=== PATIENT | male | born 2000 | race Caucasian/White ===

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

== ENCOUNTER 2022-08-16 15:32 | Emergency (ER) | payer OTHER, SELFPAY ==
--- NOTE | ~2022-08-16 | XR_ITS ---
EXAM: XR abdomen/kub 1V DATE: 08/16/2022 16:46 HISTORY: RT ANT LOWER RIB PAIN, NKI BUT HEAVY LIFTING . COMPARISON: None available. FINDINGS: Clear lung bases. Normal bowel gas pattern. No organomegaly. No abnormal abdominal calcifi cation. Regional bones and soft tissues normal for age. IMPRESSION: Normal abdominal radiograph findings. Reviewed, dictated and finalized at location K.
--- NOTE | ~2022-08-16 | XR_ITS ---
EXAMINATION: XR ribs RT 2V Exam Date/Time: 08/16/2022 16:40 CDT HISTORY: RT ANT LOWER RIB PAIN, NKI BUT HEAVY LIFTING Comparison: 11/10/2018. RESULT: Lines, tubes, and devices: None. Lungs and pleura: Clear. Cardiothymic silhouette: Normal. Other: No acute osseous or upper abdominal finding. IMPRESSION: No acute cardiopulmonary process. No acute osseous finding in the right ribs. Reviewed, dictated and finalized at location K.
[2022-08-16 15:40] VITALS: BP 98/60; PULSE 70; RESP 17; TEMP 37.1; O2SAT 100
--- NOTE | 2022-08-16 15:54 | ED.GENADULT ---
HPI - General Adult General Chief complaint: Unspecified Stated complaint: Right side extreme pain Time Seen by Provider: 08/16/22 16:21 Mode of arrival: ambulatory Limitations: no limitations History of Present Illness HPI narrative: 22-year-old male presents with concern for anterior rib pain that started slowly today. He reports the pain is exacerbated when he moves, bends. He reports it is exacerbated with coughing and deep breathing. He denies any direct injury or trauma. 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 He denies cough, shortness of breath, upper respiratory infection symptoms. He denies nausea, vomiting, diarrhea. He denies dysuria, frequency, urgency, hematuria. He denies rash. he reports the pain does radiate to the back. MD complaint: Rib pain Related Data Allergies Allergy/AdvReac Type Severity Reaction Status Date / Time No Known Allergies Allergy Verified 08/16/22 15:46 Review of Systems Review of Systems: CONSTITUTIONAL: Denies malaise, chills, sweats, or fever. EYES: Denies visual changes, redness, or discharge. ENT: Denies rhinorrhea, congestion, sinus pain, otalgia or sore throat. CARDIOVASCULAR: Denies chest pain, palpitations, or edema. RESPIRATORY: Denies cough or dyspnea. GASTROINTESTINAL: Denies abdominal pain, nausea, vomiting, diarrhea, bloody, or mucous stools. GENITOURINARY: Denies dysuria or hematuria. SKIN: Denies rash or itching. MUSCULOSKELETAL: Reports right anterior rib pain NEUROLOGIC: Denies numbness, weakness, or headache. All systems reviewed & are unremarkable except as noted in HPI and below PMFSH Past Medical History Medical History (Updated 08/16/22 @ 17:00 by Kathleen Roblero NP) No active medical problems Surgical History Surgical History (Updated 07/30/21 @ 15:20 by Milli Multani NP) History of tonsillectomy Hx of appendectomy Social History Social History (Updated 07/30/21 @ 15:21 by Milli Multani NP) Smoking status: Never smoker Alcohol intake: unknown Substance use type: does not use Living arrangements: with family Gender identity (if verbalized by the patient): Male Comments At time of signature, agree with nursing past medical, surgical, social and family history. There is no relevant family history pertinent to the presenting complaint Exam Narrative: GENERAL: Well-appearing, well-nourished, and in no acute distress. HEAD: Normocephalic, atraumatic. EYES: PERRLA, sclera clear, and EOMI. No nystagmus. ENT: Nares clear. Mucous membranes moist. NECK: Supple. CHEST: No respiratory distress. Clear to auscultation. No bony deformities, no asymmetry. Speaks in full sentences. HEART: Regular rate and rhythm. No murmur heard. Normal peripheral pulses. ABDOMEN: Soft, right upper quadrant tenderness. Nondistended, normal active bowel sounds, no palpable masses. EXTREMITIES: Normal range of motion. No edema. Normal strength and sensation. Right lower rib tenderness, difficult to differentiate the tenderness between the right lower rib and right upper abdomen SKIN: Warm, dry, no visible rash. NEURO: Alert and oriented x3. PSYCH: Normal mood and affect Course Course Emergency Course: Offered transfer to emergency room for further evaluation, patient reports he would rather treat with anti-inflammatories and understands reasons to go to the emergency room if his symptoms worsen. Patient given physician liaison number to find a primary care doctor Patient is aware of diagnosis, understands and agrees to treatment plan. Anticipatory guidance given. Patient agrees to follow-up as directed and is aware of reasons to seek care at the emergency department. Portions of this record may have been created with voice recognition software Level of Care: Express Care Visit Vital Signs Vital signs: Vital Signs Temperature 98.7 F 08/16/22 15:40 Pulse Rate 70 08/16/22 15:40 Respirat
== END 2022-08-16 17:07 | disposition home or self-care (01) ==
PROVIDERS: Emergency Provider Nurse Practitioner
DX: R07.81 Pleurodynia (principal)
CPT/HCPCS: 71100; 74018; 99213; G0463

== ENCOUNTER 2024-01-06 17:35 | Emergency (ER) | payer BC, SELFPAY ==
--- NOTE | ~2024-01-06 | XR_ITS ---
XR chest 2V Ordering provider: TEJA Epps History: 23 years Male with . COUGH/HX OF ASTHMA/FEELS LIKE SOMETHING STUCK IN THROAT . Comparison: August 16, 2022 FINDINGS: MEDIASTINUM: The cardiac silhouette is not enlarged. LUNGS: No infiltrates, effusions or pneumothorax. OTHER: No free air under the diaphragm. IMPRESSION: No acute cardiopulmonary pathology. Reviewed, dictated and finalized at location A.
[2024-01-06 17:40] VITALS: BP 108/83; PULSE 98; RESP 20; TEMP 36.5; O2SAT 100
--- NOTE | 2024-01-06 18:37 | ED.GENADULT ---
HPI - General Adult General Chief complaint: Upper Respiratory Infection Stated complaint: cough/trouble breathing Source: patient Mode of arrival: ambulatory History of Present Illness HPI narrative: Patient presents for evaluation of respiratory symptoms for last 4 days. Symptoms include number active cough shortness of breath. Indicates he has a history of asthma and experiences these symptoms every year. He reports a sore throat and a sensation that there is something stuck in (his) throat . He denies any fever, chills, nausea, vomiting. No recent sick contacts to his knowledge. He does not smoke cigarettes but he does vape. He has been using his mother's albuterol inhaler. Related Data Allergies Allergy/AdvReac Type Severity Reaction Status Date / Time No Known Allergies Allergy Verified 08/16/22 15:46 Review of Systems Review of Systems: CONSTITUTIONAL: Denies fever, chills, or sweats. EYES: Denies visual changes, redness, or discharge. ENT: Reports sore throat and sensation that there is something stuck in (his) throat . Denies rhinorrhea, congestion, or otalgia. CARDIOVASCULAR: Denies chest pain, palpitations, or edema. RESPIRATORY: Reports cough and shortness of breath GASTROINTESTINAL: Denies abdominal pain, nausea, vomiting, or diarrhea. GENITOURINARY: Denies dysuria or hematuria. SKIN: Denies rash or itching. MUSCULOSKELETAL: Denies back pain, joint pain, or myalgia. NEUROLOGIC: Denies headache, numbness, dizziness, or weakness. PSYCHIATRIC: Denies anxiety or depression. [facility] Past Medical History Medical History Asthma Environmental allergies Surgical History Surgical History History of tonsillectomy Hx of appendectomy Family History Family History Mother Family history non-contributory Social History Social History Smoking status: Current every day smoker Tobacco type: e-cigarettes/vaping Alcohol intake: unknown Substance use: current Substance use type: marijuana Living arrangements: with family Gender identity (if verbalized by the patient): Male Spiritual care concerns: No Exam Narrative: GENERAL: Well-appearing, well-nourished, and in no acute distress. HEAD: Normocephalic, atraumatic. EYES: PERRLA and EOMI. ENT: Nares clear, no rhinorrhea or epistaxis. Mucous membranes moist. Oropharynx without tonsillar hypertrophy exudate or other lesions. Bilateral TMs pearly yeager nonbulging NECK: Supple. No adenopathy or masses. No carotid bruits or JVD CHEST: cough present on exam. Clear to auscultation. No respiratory distress. No wheezes rales or rhonchi HEART: Regular rate and rhythm. No murmur heard. Normal peripheral pulses. ABDOMEN: Soft, nontender, nondistended, normal active bowel sounds. EXTREMITIES: Normal range of motion. No edema. SKIN: Warm, dry, no rash. NEURO: No focal deficits. Alert and oriented x3. PSYCH: Normal mood and affect. Course Course Emergency Course: This is a 23-year-old male who presented for evaluation of cough. Chest x-ray is negative. Strep negative. Exam is consistent with viral URI. He has a history of asthma and responds favorably to steroids when he has experienced these symptoms in the past. Will dc with prednisone, albuterol and tessalon. Advised smoking cessation. Follow up with primary provider this week. Go to the ER for worsening symptoms. Pt in agreement with plan of care. Level of Care: Express Care Visit Vital Signs Vital signs: Vital Signs Temperature 36.5 C 01/06/24 17:40 Pulse Rate 98 01/06/24 17:40 Respiratory Rate 20 01/06/24 17:40 Blood Pressure 108/83 01/06/24 17:40 Pulse Oximetry 100 01/06/24 17:40 Oxygen Delivery Room Air 01/06/24 17:40
[2024-01-06 18:55] LABS: EDSTREPNEGPOS1 Negative (Negative)
== END 2024-01-06 19:19 | disposition home or self-care (01) ==
PROVIDERS: Emergency Provider Nurse Practitioner
DX: J06.9 Acute upper respiratory infection, unspecified (principal); J45.909 Unspecified asthma, uncomplicated; F17.290 Nicotine dependence, other tobacco product, uncomplicated
CPT/HCPCS: 71046; 87081; 87880; 99213; G0463

== ENCOUNTER 2024-03-07 19:47 | Emergency (ER) | payer SELFPAY ==
--- NOTE | ~2024-03-07 | CT_ITS ---
EXAMINATION: CT abdomen pelvis w con DATE: 03/07/2024 21:08 INDICATION: Right upper quadrant abdominal pain. TECHNIQUE: Computed tomography (CT) of the abdomen and pelvis was performed with 100 mL Omnipaque 350 intravenous contrast. Automated exposure control and iterative reconstruction technique were employe d. The dose-length product was 248.14 mGy-cm. COMPARISON: None. FINDINGS: The visualized portions of the lung bases demonstrate mild atelectasis. No pleural effusion . The heart size is normal. No pericardial effusion. The liver, spleen, gallbladder, pancreas, adrena l glands, and kidneys are normal. There are no dilated loops of bowel. There are changes of appendect bienvenido. There are no pathologically enlarged lymph nodes. There is no free intraperitoneal fluid. There is thoracolumbar dextroscoliosis. IMPRESSION: 1. No etiology for the patient's symptoms. Reviewed, dictated and finalized at location A. MASTER
--- NOTE | ~2024-03-07 | XR_ITS ---
EXAMINATION: [id number] DATE: 03/07/2024 21:02 INDICATION: Right rib pain. Right upper quadrant abdominal pain. TECHNIQUE: A frontal view of the chest and 2 views on 3 radiographs of the right ribs were obtained. COMPARISON: Chest 2 views 01/06/2024 FINDINGS: There is no pneumonia, pleural effusion, or pneumothorax. The heart size is normal. IMPRESSION: 1. No rib fracture. Reviewed, dictated and finalized at location A. DESIGN AND INSTALLATION TECHNICIAN IMPRESSION: 1. No rib fracture.
[2024-03-07 19:49] VITALS: BP 140/76; PULSE 76; RESP 15; TEMP 36.6; O2SAT 100
--- NOTE | 2024-03-07 20:11 | ECG_ITS ---
Test Date: 2024-03-07 20:42:03 Measurements Intervals [place] Rate: 58 P: 10 WI: 152 QRS: 67 QRSD: 82 T: 63 QT: 390 QTc: 384 Interpretive Statements SINUS BRADYCARDIA No previous ECG available for comparison Electronically Signed On 03-07-2024 21:02:19 [employer] by Benito Chauhan M.D.
[2024-03-07] MEDS: methocarbamoL 750 MG TABLET 1500 MG PO (20:27)
[2024-03-07] MEDS: KETOROLAC 15 MG/ML VIAL (*BKC) IV PUSH (20:27)
[2024-03-07] MEDS: ACETAMINOPHEN 500 MG TABLET 1000 MG PO (20:28)
[2024-03-07] MEDS: SODIUM CHLORIDE 0.9% IV 1,000 ML 999 ML IV CONT (20:28)
[2024-03-07 20:34] LABS: Basophils Absolute Auto 0.1 K/mm3 (0.0-0.1); Basophils Percent Auto 1.3 % (0.2-1.2); Eosinophils Absolute Auto 0.7 K/mm3 (0-0.3); Eosinophils Percent Auto 8.5 % (0-4.4); Hematocrit 48.8 % (42.0-52.0); Hemoglobin 16.9 g/dL (14.0-18.0); Immature Granulocyte Absolute 0.02 K/mm3 (0.00-0.031); Immature Granulocyte Percent A 0.3 % (0-0.5); Lymphocytes Absolute Auto 2.51 K/mm3 (0.9-3.2); Lymphocytes Percent Auto 31.5 % (18.3-44.2); Mean Corpuscular HGB Conc 34.6 g/dl (32-36); Mean Corpuscular Hemoglobin 30.4 pg (26-34); Mean Corpuscular Volume 87.8 fl (80-100); Mean Platelet Volume 11.4 fl (7.4-10.4); Monocytes Percent Auto 11.9 % (2.6-8.5); Neutrophils Absolute Auto 3.7 K/mm3 (1.3-6.7); Neutrophils Percent Auto 46.5 % (45.5-73.1); Platelet Count Result 203 k/mm3 (150-375); Red Blood Count 5.56 M/mm3 (4.6-6.20)
--- NOTE | 2024-03-07 20:51 | ED_ITS ---
HPI - General Adult General Chief complaint: Back Pain/Injury Stated complaint: rib and lower back pain Time Seen by Provider: 03/07/24 19:53 History of Present Illness HPI narrative: This is a 23-year-old male presenting ED with chief complaint of right-sided rib pain and back pain. 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 Is worse movement and deep breaths. He has not taken anything for pain control besides marijuana. No fevers chills productive cough nausea vomiting or diarrhea. Related Data Allergies Allergy/AdvReac Type Severity Reaction Status Date / Time No Known Allergies Allergy Verified 03/07/24 19:54 PMFSH Past Medical History Medical History Environmental allergies Asthma Surgical History Surgical History History of tonsillectomy Hx of appendectomy Family History Family History Mother Family history non-contributory Social History Social History Smoking status: Current every day smoker Tobacco type: e-cigarettes/vaping Alcohol intake: unknown Substance use: current Substance use type: marijuana Living arrangements: with family Gender identity (if verbalized by the patient): Male Spiritual care concerns: No Exam 2 Narrative: APPEARANCE: No apparent distress. Head: atraumatic. EYES: EOMI, NOSE: Atraumatic NECK/BACK: no midline spinal tenderness, tension in the paralumbar muscles RESPIRATORY: No increased rate of breathing clear to auscultation CARDIOVASCULAR: RRR, ABDOMINAL: Voluntary guarding, Tenderness in the right upper quadrant MUSCULOSKELETAl: no significant tenderness over the patient's ribcage NEURO: Alert. Moving 4/4 extremities SKIN:: Warm, dry. Normal color PSYCHIATRIC: Normal affect Course Vital Signs Vital signs: Vital Signs Temperature 97.9 F 03/07/24 19:49 Pulse Rate 76 03/07/24 19:49 Respiratory Rate 15 03/07/24 19:49 Blood Pressure 140/76 03/07/24 19:49 Pulse Oximetry 100 12/20/24 19:49 Oxygen Delivery Room Air 03/07/24 19:49 Temperature 97.9 F 03/07/24 19:49 Pulse Rate 76 03/07/24 19:49 Respiratory Rate 15 03/07/24 19:49 Blood Pressure 140/76 03/07/24 19:49 Pulse Oximetry 100 03/07/24 19:49 Oxygen Delivery Room Air 03/07/24 19:49 Medical Decision Making MDM Narrative Medical decision making narrative: -Course: 23-year-old male presenting with right side abdomen/rib pain. imaging/laboratory studies unremarkable. Patient's pain improved with NSAIDs muscle relaxers. pain is MSK in origin. Patient will be discharged. Given return precautions. 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 Vital Signs Vital Signs: Vital Signs Temperature 97.9 F 03/07/24 19:49 Pulse Rate 76 03/07/24 19:49 Respiratory Rate 15 03/07/24 19:49 Blood Pressure 140/76 03/07/24 19:49 Pulse Oximetry 100 03/07/24 19:49 Oxygen Delivery Room Air 03/07/24 19:49 Temperature 97.9 F 03/07/24 19:49 Pulse Rate 76 03/07/24 19:49 Respiratory Rate 15 03/07/24 19:49 Blood Pressure 140/76 03/07/24 19:49 Pulse Oximetry 100 03/07/24 19:49 Oxygen Delivery Room Air 03/07/24 19:49 Lab Data 03/07/24 20:24 03/07/24 20:24 Labs: Lab Results 03/07/24 Range/Units 20:24 WBC 8.0 (4.5-10.0) K/mm3 RBC 5.56 (4.6-6.20) M/mm3 Hgb 16.9 (14.0-18.0) g/dL Hct 48.8 (42.0-52.0) % MCV 87.8 (80-100) fl MCH 30.4 (26-34) pg MCHC 34.6 (32-36) g/dl RDW 13.0 (11.5-14.5) % Plt Count 203 (150-375) k/mm3 MPV 11.4 H (7.4-10.4) fl Immature Gran % (Auto) 0.3 (0-0.5) % Neut % (Auto) 46.5 (45.5-73.1) % Lymph % (Auto) 31.5 (18.3-44.2) % [place] % (Auto) 11.9 H (2.6-8.5) % Eos % (Auto) 8.5 H (0-4.4) % Baso % (Auto) 1.3 H (0.2-1.2) % Lymph # (Auto) 2.51 (0.9-3.2) K/mm3 [place] # (Auto) 1.0 H (0.1-0.6) K/mm3 Eos # (Auto) 0.7 H (0-0.3) K/mm3 Baso # (Auto) 0.1 (0.0-0.1) K/mm3 Abs Immat Gran (auto) 0.02 (0.00-0.031) K/mm3 Absolute Neuts (auto) 3.7 (1.3-6.7) K/mm3 Absolute Nucleated RBC 0.000 (0.0-0.012) K/mm3 Nucleated RBC % 0.0 (0.0-0.2) % Sodium 139 (137-145) mmol/L Potassium 4.2 (3.4-5.0) mmol/L Chloride 106 (98-107) mmol/L Carbon Dioxide 26 (22-30) mmol/L Anion Gap 7 (4-12) mmol/L BUN 14 (9-20) mg/dL Creatinine 1.00 (0.7-1.3) mg/dL Estim Creat Clear Calc 83 ml/min Estimated GFR > 60 (59 - ) Glucose 90 (65-110) mg/dL Calcium 9.9 (8.4-10.2) mg/dL Total Bilirubin 0.9 (0.2-1.3) mg/dL AST 27 (17-59) U/L ALT 13 (6-50) U/L Alkaline Phosphatase 61 (38-126) U/L Total Protein 8.0 (6.3-8.2) g/dL Albumin 4.8 (3.5-5.1) g/dL Lipase 145 (23-300) U/L Discharge Plan Discharge Clinical Impression: Pain in rib Patient Disposition: Home, Self-Care Condition: Stable Instructions: Antibiotic Form, Rib Contusion (ED) Additional Instructions: He was seen emergency department for rib pain. Please use Motrin Tylenol Robaxin as needed. Please follow-up your primary care physician further management. Return if you develop severe chest pain difficulty breathing or if you develop any new or worsening symptoms. Patient Language: Macedonian Prescriptions: New ibuprofen 800 mg tablet 800 mg PO TID PRN (Reason: pain) 7 Days Qty: 21 0RF acetaminophen 500 mg tablet 1,000 mg PO TID PRN (Reason: angelina) 7 Days Qty: 42 0RF methocarbamol 750 mg tablet 1,500 mg PO TID Qty: 35 0RF No Action prednisone 50 mg tablet 50 mg PO DAILY Qty: 5 0RF benzonatate 200 mg capsule 200 mg PO TID PRN (Reason: cough) Qty: 30 0RF Proair Digihaler 90 mcg/actuation aero powdr breath act w/sensor 2 inh inhalation QID Qty: 1 0RF Rx Instructions: okay to substitute for another albuterol inhaler Follow-up/Referrals: UNKNOWN,DOCTOR [Primary Care Provider] -
[2024-03-07 20:55] LABS: Alanine Aminotransferase 13 U/L (6-50); Albumin Level 4.8 g/dL (3.5-5.1); Alkaline Phosphatase 61 U/L (38-126); Anion Gap 7 mmol/L (4-12); Aspartate Amino Transferase 27 U/L (17-59); Bilirubin,Total 0.9 mg/dL (0.2-1.3); Blood Urea Nitrogen 14 mg/dL (9-20); Calcium 9.9 mg/dL (8.4-10.2); Carbon Dioxide 26 mmol/L (22-30); Chloride 106 mmol/L (98-107); Estimated CRCL calculation 83 ml/min; Estimated Glomerular Filt Rate > 60; Glucose 90 mg/dL (65-110); Lipase 145 U/L (23-300); Potassium 4.2 mmol/L (3.4-5.0); Sodium 139 mmol/L (137-145)
== END 2024-03-07 22:01 | disposition home or self-care (01) ==
PROVIDERS: Emergency Provider Emergency Medicine
DX: R07.81 Pleurodynia (principal); J45.909 Unspecified asthma, uncomplicated; F17.290 Nicotine dependence, other tobacco product, uncomplicated
CPT/HCPCS: 36415; 71101; 74177; 80053; 83690; 85025; 93005; 96361; 96374; 99284; A9270; J1885; J7030; Q9967

== ENCOUNTER 2024-09-09 12:16 | Emergency (ER) | payer SELFPAY ==
--- NOTE | 2024-09-09 12:19 | ED.SKABFB ---
HPI - Skin/Abscess/Foreign Bdy General Chief complaint: Skin/Abscess/Foreign Body Stated complaint: rash on body Time Seen by Provider: 09/09/24 12:18 Source: patient Mode of arrival: ambulatory Limitations: no limitations History of Present Illness HPI narrative: Patient is a 24 year old male who presents to the clinic with complaints of rash x 1 day. He states that he has a history of asthma and is allergic to everything outside. He currently cuts trees for work. He is unaware of what he may have came in contact with yesterday, but states the rash is itchy. He has been using calamine lotion. He has not taken anything [id number]. Denies any shortness of breath, nausea, vomiting, fevers, or diarrhea. Related Data Allergies Allergy/AdvReac Type Severity Reaction Status Date / Time No Known Allergies Allergy Verified 03/07/24 19:54 Review of Systems Review of Systems: CONSTITUTIONAL: Denies body aches, fever, chills, or sweats. EYES: Denies visual changes, redness, or discharge. ENT: Denies rhinorrhea, congestion CARDIOVASCULAR: Denies chest pain, palpitations, or edema. RESPIRATORY: Denies cough or dyspnea. GASTROINTESTINAL: Denies abdominal pain, nausea, vomiting, or diarrhea. SKIN: Reports a rash to trunk, back, face, and bilateral arms. MUSCULOSKELETAL: Denies back pain, joint pain, or myalgia. NEUROLOGIC: Denies headache, numbness, tingling, or weakness. All systems reviewed & are unremarkable except as noted in HPI and below PMFSH Past Medical History Medical History Environmental allergies Asthma Surgical History Surgical History History of tonsillectomy Hx of appendectomy Family History Family History Mother Family history non-contributory Social History Social History Smoking status: Current every day smoker Tobacco type: e-cigarettes/vaping Alcohol intake: unknown Substance use: current Substance use type: marijuana Living arrangements: with family Gender identity (if verbalized by the patient): Male Spiritual care concerns: No Comments At time of signature, I have reviewed and agree with nursing past medical, surgical, social and family history unless otherwise noted. Please see nursing chart for further information. There is no relevant family history pertinent to the presenting complaint. Exam Narrative: GENERAL: Well-appearing HEAD: Normocephalic, atraumatic. EYES: ?conjunctivae clear, and EOMI. ENT: Mucous membranes moist. Oropharynx without edema, erythema or lesions. NECK: Supple. No lymphadenopathy CHEST: Clear to auscultation. HEART: Regular rate and rhythm. SKIN: Warm, dry. ?Raised, erythemic papules and itchy rash noted to trunk, bilateral extremities, and face. NEURO: ?Alert and oriented x3.? Course Course Level of Care: Express Care Visit Vital Signs Vital signs: Vital Signs Temperature 98 F 09/09/24 12:20 Pulse Rate 62 09/09/24 12:20 Respiratory Rate 20 09/09/24 12:20 Blood Pressure 121/75 09/09/24 12:20 Pulse Oximetry 99 09/09/24 12:20 Oxygen Delivery Room Air 09/09/24 12:20 Temperature 98 F 09/09/24 12:20 Pulse Rate 62 09/09/24 12:20 Respiratory Rate 20 09/09/24 12:20 Blood Pressure 121/75 09/09/24 12:20 Pulse Oximetry 99 09/09/24 12:20 Oxygen Delivery Room Air 09/09/24 12:20 Reviewed MDM - Skin/Abscess/Foreign Bdy MDM Narrative Medical decision making narrative: Discussed physical exam findings. Prednisone and triamcinolone prescriptions given.Advised supportive measures and signs/symptoms to go to the ER. Pt is appropriate for outpatient treatment and follow up. Differential Diagnosis Differential diagnosis: Likely contact dermatitis and other ( poison miguelina) Critical Care Time Critical Care Time Critical Care Time: No Discharge Plan Discharge Clinical Impression: Poison miguelina Patient Disposition: Home Condition: Stable Instructions: Antibiotic Form, Poison Miguelina (ED) Additional Instructions: Take steroid as prescribed. Use triamcinolone as prescribed. Recommend Zyrtec (or Claritin/Tegan) Prevention is always better than treatment. Learn to identify poison miguelina, oak, and sumac and avoid it. Wear long sleeves, long pants, shoes, and socks. If you touched the plant, try to keep your hands away from your eyes, mouth, and face. Wash the skin thoroughly with soap and cool water as soon as possible. Scrub under the fingernails with a brush to prevent spreading of the resin to other parts of the body by touching or scratching. Remember to wash any clothing with soap and hot water as the resin can persist for many months and cause further dermatitis. You should NOT use antihistamine creams or lotions, anesthetic creams containing benzocaine, or antibiotic creams containing neomycin or bacitracin to the skin. These creams or ointments could make the rash worse. For some people, adding oatmeal to a bath, applying cool wet compresses, and applying calamine lotion may help to relieve itching. Once the blisters begin weeping fluid, astringents containing aluminum acetate (Burow's solution) and [place]omeboro may help to relieve the rash. IF symptoms get worse to follow up with your primary care provider or seek ER visit if you developing difficulty breathing, weakness, dizziness. Patient Language: Lithuanian Prescriptions: New prednisone 10 mg tablet See Rx Instructions .Route .COMPLEX Qty: 30 0RF Rx Instructions: 60mg PO daily on day 1, 40mg PO daily for days 2-4, 30 mg PO daily on days 5-6, 20mg PO daily on days 7-8, 10mg PO daily on days 9-10. triamcinolone acetonide 0.1 % cream 1 applic topical BID Qty: 30 0RF Follow-up/Referrals: PHYSICIAN,ED TRANSPORTER [Primary Care Provider] - Stand Alone Forms: Work/School Release IP Time of Disposition: 12:37
[2024-09-09 12:20] VITALS: BP 121/75; PULSE 62; RESP 20; TEMP 36.6; O2SAT 99
[2024-09-09] MEDS: dexAMETHasone SOD PHOS INJ 10 MG/ML 1 ML VIAL IM (12:40)
== END 2024-09-09 12:55 | disposition home or self-care (01) ==
DX: L23.7 Allergic contact dermatitis due to plants, except food (principal); F17.290 Nicotine dependence, other tobacco product, uncomplicated; F12.90 Cannabis use, unspecified, uncomplicated; J45.909 Unspecified asthma, uncomplicated
CPT/HCPCS: 96372; 99213; G0463; J1100